=== PATIENT | female | born 2000 | race African-American/Black ===

== ENCOUNTER 2024-06-22 12:10 | Emergency (ER) | payer MEDICAID ==
[~2024-06-22] VITALS: Ht 172.7 cm; Wt 68.0 kg
[2024-06-22 12:25] VITALS: BP 135/80; PULSE 80; RESP 16; TEMP 37; O2SAT 100
[2024-06-22] MEDS: TETANUS, DIPHTHERIA, PERTUSSIS VAC/PF 0.5ML (>10YR OLD) IM ONE (13:37)
== END 2024-06-22 13:55 | disposition home or self-care (01) ==
LOC: ER 12:10
DX: S61.412A Laceration without foreign body of left hand, initial encounter (principal); I10 Essential (primary) hypertension; X58.XXXA Exposure to other specified factors, initial encounter; Y93.89 Activity, other specified; Y92.89 Other specified places as the place of occurrence of the external cause; Y99.8 Other external cause status
CPT/HCPCS: 12001; 90715; 99282